=== PATIENT | male | born 1945 | race Caucasian/White ===

== ENCOUNTER 2017-07-03 07:23 | Outpatient (CLI) | payer MEDICARE ==
--- NOTE | 2017-07-03 09:36 | CT ---
CT THORAX WITHOUT IV CONTRAST: Date: 07/03/17 INDICATION: History of non-rheumatic aortic valvular stenosis with primary hypertension. COMPARISON: None. FINDINGS: There is an aortic valvular prosthesis in place. There is aneurysmal dilatation of the ascending aort a measuring up to 4.9 cm. There is aneurysmal dilatation of the aortic arch measuring 3.5 cm. The samantha cending thoracic aorta at the level of the right main pulmonary artery measured 2.8 cm. There are mod erate scattered vascular calcifications involving the thoracic aorta and coronary arteries. There are midline sternotomy changes. No suspicious pulmonary nodule or confluent air space opacity is evident. No pleural effusion is demo nstrated. No pathologically enlarged lymph nodes are noted. Visualized upper abdomen is unremarkable for acute abnormality. There is scattered degenerative and o steoarthritic change. IMPRESSION: 1. Aortic valvular prosthesis. 2. 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 If there is concern for ao rtic valvular prosthetic stenosis, further evaluation with an echocardiogram is recommended. 3. Coronary artery thoracic aortic calcifications. POS: [facility]
== END 2017-07-03 07:24 | disposition home or self-care (01) ==
LOC: CT 07:23
PROVIDERS: ATTEND Internal Medicine Cardiovascular Disease
DX: I35.0 Nonrheumatic aortic (valve) stenosis (principal); I70.0 Atherosclerosis of aorta; I71.2 Thoracic aortic aneurysm, without rupture; Z95.2 Presence of prosthetic heart valve
CPT/HCPCS: 71250

== ENCOUNTER 2017-07-16 14:00 | Outpatient (CLI) | payer MEDICARE ==
--- NOTE | 2017-07-16 15:52 | RAD ---
CERVICAL SPINE 5 VIEWS: INDICATION: Post concussion syndrome. Neck pain and headache. FINDINGS: Cervical vertebrae maintain normal height and alignment. There are mild to moderate degenerative pamela nges. There is mild loss of disk space at all levels and there are mild anterior osteophytes and mil d posterior spondylitic changes, most prominent at C4-5 and C5-6 levels. No fracture or compression deformity noted. Alignment is normally maintained with flexion and extension. IMPRESSION: There are mild to moderate degenerative changes as described. POS: [facility]
== END 2017-07-16 14:01 | disposition home or self-care (01) ==
LOC: RAD 14:00
PROVIDERS: ATTEND Nurse Practitioner Family
DX: F07.81 Postconcussional syndrome (principal); Z51.81 Encounter for therapeutic drug level monitoring; M47.892 Other spondylosis, cervical region; Z95.2 Presence of prosthetic heart valve; Z79.01 Long term (current) use of anticoagulants
CPT/HCPCS: 72050

== ENCOUNTER 2017-07-19 09:39 | Inpatient (IN) | payer MEDICARE ==
[2017-07-19 10:47] LABS: #Lymphocytes 0.7 thou/uL (1.20-3.40); #Monocytes 0.6 thou/uL (0.11-0.59); #Neutrophils 6.6 thou/uL (1.40-6.50); %Basophils 0.5 % (0.0-1.0); %Eosinophils 0.4 % (0.0-10.0); %Monocytes 6.9 % (0.0-10.0); %Neutrophils 83.2 % (42.0-75.0); Hemoglobin 14.1 g/dL (14.0-18.0); Mean Corpuscular HGB CONC 32.6 g/dL (32.0-36.0); Mean Corpuscular Hemoglobin 29.6 pg (27.0-31.0); Mean Corpuscular Volume 90.7 fl (80.0-94.0); Mean Platelet Volume 7.7 fL (7.4-10.4); Platelet Count 195 thou/uL (130-400); RBC Distribution Width 13.2 % (11.5-14.5); Red Blood Cell (RBC) Count 4.78 mill/uL (4.70-6.10)
[2017-07-19 11:00] LABS: INR-International Normal Ratio 1.7; PTT 29.4 SEC (22.9-36.1); Prothrombin Time 20.7 SEC (12.0-14.7)
[2017-07-19 11:12] LABS: ALT (SGPT) 9 U/L (8-55); AST (SGOT) 15 U/L (5-34); Albumin 3.8 g/dL (3.4-4.8); Alkaline Phosphatase 61 U/L (40-150); Anion Gap 11 mmol/L (10-20); BUN (Urea Nitrogen) 18 mg/dL (8.4-25.7); Bilirubin, Total 1.9 mg/dL (0.2-1.2); CK (CPK) 68 U/L (30-200); Calc. Creatinine Clearance 0 mL/min (70-130); Calcium 9.2 mg/dL (7.8-10.44); Carbon Dioxide 23 mmol/L (23-31); Chloride 108 mmol/L (98-107); Estimated GFR-MDRD 74; Globulin 2.7 g/dL (2.4-3.5); Glucose 122 mg/dL (80-115); Potassium 3.8 mmol/L (3.5-5.1); Protein, Total 6.5 g/dL (5.8-8.1); Sodium 138 mmol/L (136-145)
[2017-07-19 11:15] LABS: CKMB 1.2 ng/mL (0-6.6); Troponin I Less than 0.010 ng/mL (< 0.028)
--- NOTE | 2017-07-19 11:45 | RAD ---
SINGLE VIEW OF THE CHEST: COMPARISON: 08/06/16. HISTORY: Hit head 2 months ago with weakness and lethargy. FINDINGS: A single view of the chest shows an enlarged but stable cardiomediastinal silhouette. The patient is status post sternotomy. There is no evidence of consolidation, mass, or pleural effusion. IMPRESSION: Cardiomegaly. POS: [facility]
--- NOTE | 2017-07-19 12:09 | CT ---
CT OF THE BRAIN WITHOUT CONTRAST: HISTORY: Head injury 2 months ago. Mental status changes and weakness. Lightheadedness and headache. COMPARISON: MRI 08/07/16. TECHNIQUE: Multiple contiguous axial images were obtained in a CT of the brain without contrast. FINDINGS: There are bilateral acute on chronic subdural hematomas, left greater than right. These are along th e frontal and parietal convexities. The left subdural hematoma measures 1.5 cm in thickness. No int erventricular hemorrhage is seen. No significant midline shift or downward herniation is seen at thi s time. No parenchymal hemorrhage is seen. The calvarium and overlying soft tissues are unremarkable. The visualized paranasal sinuses and mast oid air cells are well aerated. IMPRESSION: Bilateral acute on chronic subdural hematomas. These are new compared to the prior CT and MRI. Dr. Ruiz notified of the findings at 10:53 p.m. on 07/19/17. CODE CR POS: [facility]
--- NOTE | 2017-07-19 12:11 | CT ---
CT OF THE CERVICAL SPINE WITHOUT CONTRAST: COMPARISON: None. HISTORY: Weakness and altered mental status. TECHNIQUE: Multiple contiguous axial images were obtained in a CT of the cervical spine without contrast. Sagit kwame and coronal reformats were performed. FINDINGS: The intervertebral disks are narrowed throughout the cervical spine secondary to degenerative changes . The vertebral bodies demonstrate height and alignment without acute fracture or subluxation. No p revertebral soft tissue swelling is seen. The posterior facets are well aligned. Normal alignment of the skull base with the cervical spine is seen. IMPRESSION: Degenerative changes of the cervical spine without acute osseous abnormality. POS: [facility]
[2017-07-19] MEDS ORDERED: Ondansetron HCl/PF 4 MG/2 ML Vial IVP PRN (12:35)
[2017-07-19] MEDS ORDERED: Acetaminophen 325 MG TAB PO PRN (12:35)
[2017-07-19] MEDS ORDERED: Bisacodyl 10 MG SUPP PR PRN (12:35)
[2017-07-19] MEDS ORDERED: Acetaminophen 650 MG Suppository PR PRN (12:35)
[2017-07-19] MEDS ORDERED: Ondansetron ODT 4 MG TAB PO PRN (12:35)
[2017-07-19] MEDS ORDERED: Bisacodyl 5 MG TAB PO PRN (12:35)
[2017-07-19] MEDS ORDERED: Phytonadione 10 MG/ML AMP SC SCH ×2 (12:45→18:30)
--- NOTE | 2017-07-19 15:20 | HP ---
REASON FOR ADMISSION: Subdural hematoma. HISTORY OF PRESENT ILLNESS: Sudheer Layne is a 72-year-old gentleman in our emergency department who , for the last 2 days, has had some deterioration in his mental status and ability to walk and care f or himself. Mr. Layne was about 2 months ago when he bumped his head. He is on aspirin and Co umadin and had some continued headaches that took him to his primary care physician this week. Narco tic analgesics and x-rays of the cervical spine were ordered and the analgesics resulted in duration of his ability to walk and care for himself. In the emergency department, he is arousable, awake and answers questions, but he drifts off to sleep rather quickly. He can move all four extremities. He follows commands. There is no lateralization of his weakness, but there is a generalized fatigabili ty. Alternating rapid motions are performed quite slowly, but there is smooth with no dysmetria. CT imaging of the brain revealed subdural hematoma. Neurosurgery was consulted. PAST MEDICAL HISTORY: Aortic valvular disease, hyperlipidemia, hypertension, cardiac arrhythmia, ost eoarthritis. PAST SURGICAL HISTORY: Aortic valve replacement, cardiac catheterization, left hip replacement. MEDICATIONS: Include Prevacid, valsartan/hydrochlorothiazide, aspirin, Coumadin, Crestor, diltiazem. SOCIAL HISTORY: Mr. Layne is retired. Does not smoke or use alcoholic beverages. He has no recreat ional drug use history. Lives with his . He has adult children in town. FAMILY HISTORY: Noncontributory. REVIEW OF SYSTEMS: Mr. Layne is denying everything but generalized fatigue and slowness and inabilit y to walk. PHYSICAL EXAMINATION: VITAL SIGNS: Blood pressures have been in the 150s, respiratory rate is 14. He is saturating in the high 90%, pulse is 80. GENERAL: Mr. Layne awakes when I walked into the room. He answers questions appropriately. His spe ech is fluent. His receptive language function is fine. If I engage his gaze and talk to him face t o face, he stays awake and participates sleep. With him awake, he can move all four extremitie s. He follows commands well, but very slowly. Alternating rapid motions are performed very slowly. There is mild bilateral pronator drift. ADMISSION FINDINGS AND TEST RESULTS: CT examination of the brain shows bilateral subdural fluid kori ections with subacute and chronic fluid therein. The total diameter on both sides as well over a centimeter and even over 15 mm. There is fluid level in the fluid collections. INR 1.7, platelet count of 195,000. 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 PLAN: I had a long discussion with Mr. Layen and his family. I have recommended bilateral naa hole evacuation of the subdural hematomas tomorrow. He will be n.p.o. after midnight, given vitamin K an d slowly transfuse 1 unit of FFP without fluid overloading him. IV fluid would only be administered after the FFP is in. Ask the medical team to make sure he is as safe as he can be for surgical intervention. After surgery, he will flat overnight with a CT scan on Sunday morning, we will leave drains in jose ce on both sides and the drains can be removed if there is good evacuation of the subdural fluid. INFORMED CONSENT: I discussed indications, risks, benefits, and alternatives to surgical interventio n for subdural hematomas. The risks I discussed included, but were not limited to bleeding, infectio n, CSF leak, brain damage, seizures, stroke, paralysis, dependence for care, cardiopulmonary complica tions of anesthesia rebleeding and . The patient's family expressed understanding of the risks and still wants to proceed.
[2017-07-19] MEDS: Docusate 100 MG CAP PO SCH (20:14)
[2017-07-19] MEDS: levETIRAcetam 500 mg/5 ml Oral Solution PO SCH (20:14)
[2017-07-19] MEDS: Metoprolol Tartrate 5 MG/5 ML VIAL IVP PRN (20:21)
[2017-07-20] MEDS: Metoprolol Tartrate 5 MG/5 ML VIAL IVP PRN (04:40)
[2017-07-20] MEDS: levETIRAcetam 500 mg/5 ml Oral Solution PO SCH ×2 (07:44→21:07)
[2017-07-20] MEDS: Docusate 100 MG CAP PO SCH ×2 (07:44→21:07)
[2017-07-20 08:34] LABS: INR-International Normal Ratio 1.5; PTT 27.7 SEC (22.9-36.1); Prothrombin Time 17.9 SEC (12.0-14.7)
--- NOTE | 2017-07-20 09:09 | PRG ---
DATE OF SERVICE: 07/20/2017 I saw Mr. Layne in his hospital room this morning. His nurse reports that the Hospitalist Service wa s called yesterday. I do not see any notes on the patient. Patient does not wake up enough to give any complaints or report on his condition overnight, but tells me he is aware of why he is in the [facility] and he wants to proceed with the surgery outlined yesterday. His vital signs overnight showed a high blood pressure in the 150s to 70s. Other vital signs that I see recorded are stable. OBJECTIVE: On examination, Mr. Layne is resting as I entered the room. He says a few words to jodee mari, opens his eyes barely, keep them open for a few seconds and closes them. He tries to follow com mands, but his protracted attention has a significant deficit and he stopped following commands quite quickly. Both hands squeeze my hand. He moves his legs only to stimulus. My plan today is Mr. Layne come to operating room later this morning. We will do naa hole evacuatio n of bilateral subdural hematomas, also placed drains on both sides and [facility] with the drains in place. If CT scans tomorrow look better, the drains can be removed and he can start his gradual mobilization after his operation.
[2017-07-20] MEDS ORDERED: Bacitracin Zinc Ointment 30 gm TUBE ONE (09:12)
[2017-07-20] MEDS ORDERED: Sodium Chloride 0.9% 30 ML ONE (09:12)
[2017-07-20] MEDS ORDERED: Lidocaine 0.5%/Epinephrine 1:200,000 50 ml Vial ONE (09:12)
[2017-07-20] MEDS ORDERED: Thrombin 5000 UNITS/5 ML VIAL ONE (09:12)
[2017-07-20] MEDS ORDERED: Ondansetron HCl/PF 4 MG/2 ML Vial ONE ×2 (09:56→15:06)
[2017-07-20] MEDS ORDERED: Fentanyl 100 MCG/2 ML VIAL ONE (09:56)
[2017-07-20] MEDS ORDERED: CEFAZOLIN/Water 2 GM/20 ML SYRINGE ONE (09:57)
[2017-07-20] MEDS ORDERED: Promethazine 25 MG TAB PO PRN (12:34)
[2017-07-20] MEDS ORDERED: Promethazine HCl 12.5 MG SUPP PR PRN (12:34)
[2017-07-20] MEDS ORDERED: Labetalol HCl 100 MG/20 ML VIAL SLOW IVP PRN (12:34)
[2017-07-20] MEDS ORDERED: Ondansetron HCl/PF 4 MG/2 ML Vial IVP PRN (12:34)
[2017-07-20] MEDS ORDERED: Acetaminophen 650 MG Suppository PR PRN (12:34)
[2017-07-20] MEDS ORDERED: Promethazine HCl 25 MG/ML VIAL IM PRN (12:34)
[2017-07-20] MEDS ORDERED: hydrALAZINE 20 MG/ML VIAL SLOW IVP PRN (12:34)
[2017-07-20] MEDS ORDERED: CEFAZOLIN/Water 2 GM/20 ML SYRINGE SLOW IVP SCH (12:45)
[2017-07-20] MEDS ORDERED: PHENYLEPHRINE-NS 100 MCG/ML 10 ML SYRINGE ONE (15:06)
[2017-07-20] MEDS ORDERED: PROPOFOL 200 MG/20 ML VIAL ONE (15:06)
[2017-07-20] MEDS ORDERED: ePHEDrine/0.9% NaCl/PF SYRINGE 50 mg/10 ml ONE (15:06)
[2017-07-20] MEDS ORDERED: Lidocaine 1% PF 5 ML VIAL ONE (15:06)
[2017-07-20 15:16] VITALS: BMI 23.6
--- NOTE | 2017-07-20 16:03 | OP ---
DATE OF PROCEDURE: 07/20/2017 SURGEON: Franca Machado M.D. VBA PROGRAMMER: CHARAN Allen. PREOPERATIVE INDICATION: Prevent neurological deterioration. PREOPERATIVE DIAGNOSES: Bilateral subdural hematomas, subacute to chronic. POSTOPERATIVE DIAGNOSIS: Bilateral subdural hematomas, subacute to chronic. OPERATIVE PROCEDURE: Bilateral placement of bur holes, evacuation of subdural hematoma and placement of subdural drain. PREOPERATIVE MEDICATION: Ancef 2 grams IV. DRAIN NUMBER: 2. DRAIN TYPE: Red rubber catheter in the subdural space. OPERATIVE DICTATION: The patient was brought to the operating room. General LMA anesthesia was leanna brendan. Hair was removed from the scalp with electric clippers. We planned incisions to place bur hole s in the frontal and parietal bones on both sides and under the planned incisions, we infused local a nesthetic. The scalp was sterilely prepped and draped. We started by turning the head to the left a nd prepping and draping the right side. We opened the right-sided planned incisions with a 10 blade knife and controlled bleeding with bipolar and monopolar cautery. We placed self-retaining retractor s and exposed the cranium beneath them. Bur holes were placed in the frontal and parietal bones and we waxed the bone edges. We coagulated the dura with bipolar cautery and opened in cruciate fashion. We opened the posterior bur hole first and then the anterior bur hole and old blood products emanat ed under some pressure. We washed the subdural space with irrigation and placed a red rubber cathete r into the subdural space. We cut extra side holes in the catheter before placing it. We tunneled t he drain posteriorly through a separate stab incision and connected it to a lumbar drain bag. We con tinued to irrigate the subdural space and the irrigant came into the collecting bag. We then placed Gelfoam in the bur holes. We placed a bur hole cover on the frontal bone bur hole and we closed the wound in anatomic layers. We applied a sterile dressing. We then turned the head to the right and p repped and draped the left side of the scalp. In a similar fashion, we opened our planned incision w ith a 10 blade knife, placed self-retaining retractors, placed our bur holes, waxed the edges and the n opened the dura. Blood products emanated under some pressure. We washed the subdural space with c opious amounts of bacitracin irrigation. We placed a red rubber catheter with extra side holes in it into the subdural space and tunneled posteriorly through a separate stab incision and connected it t o a lumbar drain bag. We irrigated and found the subdural space connected with the collection bag. We placed Gelfoam in the bur holes and a bur hole cover on the frontal bur hole. We closed the incis ions in anatomic layers. We applied a sterile dressing here as well. This was a clean case and no c ontamination.
--- NOTE | 2017-07-20 16:57 | CON ---
DATE OF CONSULTATION: 07/20/2017 REASON FOR CONSULTATION: Medical management. REFERRING PHYSICIAN: Dr. Machado. HISTORY OF PRESENT ILLNESS: The patient is a 72-year-old gentleman known to us at this practice with a history of multiple medical problems to include hyperlipidemia, hypertension, and aortic valve rep lacement in the past. He does have a history of subdural fluid collection with subacute and chronic fluid by CT and for thi s reason he is being admitted for surgical intervention. The patient is confused. He is weak. All the information was obtained from his . His stat es he has been getting progressively worse over the last several weeks. He has been confused. She w as told to bring him to Dr. Reddy' office; however, she could not get him there secondary to his cond itions, so she did bring him in to the hospital. There, he was found to have the condition as enumer ated above. Patient currently is hemodynamically stable and appeared to be in no acute distress. PAST MEDICAL HISTORY: 1. Hyperlipidemia. 2. Hypertension. 3. Osteoarthritis. 4. Cardiac arrhythmia. 5. Hyperlipidemia. 6. GERD. PAST SURGICAL HISTORY: 1. History of left hip replacement. 2. History of aortic valve replacement. ALLERGIES: None. MEDICATIONS: 1. Crestor 20 mg. 2. Lansoprazole 30 mg. 3. Coumadin 5 mg one and half alternating doses. 4. Aspirin 325 mg a day. 5. Tylenol No. 3 p.r.n. for 4-6 hours. 6. 75 mg 4 times a day SOCIAL HISTORY: He quit chewing tobacco over 15 years ago. He does not drink. FAMILY HISTORY: Noncontributory, history could not be obtained due to patient's mental status. PHYSICAL EXAMINATION: GENERAL: Upon, he is awake. He is confused. He is weak in his voice. VITAL SIGNS: Blood pressure 165/80, pulse 65, respiratory rate 18, afebrile. NECK: Supple with no increased JVP or carotid bruit. Carotid upstroke without thyromegaly. COR: Regular rate and rhythm. CHEST: Symmetrical. Clear to auscultation and percussion. ABDOMEN: Soft and nontender with normoactive bowel sounds. There is no bruit or organomegaly. EXTREMITIES: No edema or cyanosis. He had palpable pedal pulses. SKIN: There is no evidence of ulceration, lesion, or rash. NEUROLOGIC: He is awake, but he is confused. LABORATORY DATA AND IMAGING DATA: His INR is 1.7. His CBC is normal. His glucose is 122. His BUN and creatinine are normal. EKG showed sinus rhythm. ASSESSMENT: 1. Bilateral subdural hematomas. 2. Confusion, secondary to above. 3. Hypertension. 4. Hyperlipidemia. 5. History of aortic valve replacement, on Coumadin. RECOMMENDATIONS: Agree with your fine care. We will resume home medications once able. I have alre wilmar ordered Lopressor IV q.3 hours for systolic blood pressure greater than 170 and will be happy to follow the patient post-surgery. It may be a good idea to involve Cardiology with his history and hi m being on Coumadin.
[2017-07-20] MEDS: Acetaminophen 325 MG TAB PO PRN ×2 (17:05→22:13)
[2017-07-20] MEDS: CEFAZOLIN/Water 2 GM/20 ML SYRINGE SLOW IVP SCH (18:05)
[2017-07-20] MEDS: Sodium Chloride 0.9% 1,000 ML IV SCH (18:56)
[2017-07-21] MEDS: Sodium Chloride 0.9% 1,000 ML IV SCH ×2 (02:30→16:09)
[2017-07-21] MEDS: CEFAZOLIN/Water 2 GM/20 ML SYRINGE SLOW IVP SCH ×3 (02:32→23:22)
[2017-07-21] MEDS: Acetaminophen 325 MG TAB PO PRN (03:51)
[2017-07-21 07:22] LABS: #Eosinphils 0.1 thou/uL (0.0-0.7); #Lymphocytes 0.8 thou/uL (1.20-3.40); #Monocytes 0.8 thou/uL (0.11-0.59); #Neutrophils 5.9 thou/uL (1.40-6.50); %Basophils 0.4 % (0.0-1.0); %Eosinophils 1.6 % (0.0-10.0); %Lymphocytes 9.9 % (21.0-51.0); %Monocytes 10.7 % (0.0-10.0); %Neutrophils 77.5 % (42.0-75.0); Hemoglobin 14.2 g/dL (14.0-18.0); Mean Corpuscular HGB CONC 33.6 g/dL (32.0-36.0); Mean Corpuscular Hemoglobin 30.3 pg (27.0-31.0); Mean Corpuscular Volume 90.3 fl (80.0-94.0); Mean Platelet Volume 7.2 fL (7.4-10.4); Platelet Count 174 thou/uL (130-400); RBC Distribution Width 13.4 % (11.5-14.5); Red Blood Cell (RBC) Count 4.67 mill/uL (4.70-6.10); White Blood Cell (WBC) Count 7.7 thou/uL (4.8-10.8)
[2017-07-21] MEDS ORDERED: Acetaminophen/Codeine 30-300mg Tablet PO PRN ×2 (07:26)
[2017-07-21] MEDS ORDERED: AMOXICILLIN PO PRN (07:28)
[2017-07-21 07:51] LABS: Anion Gap 9 mmol/L (10-20); BUN (Urea Nitrogen) 19 mg/dL (8.4-25.7); Calc. Creatinine Clearance 85 mL/min (70-130); Calcium 8.6 mg/dL (7.8-10.44); Carbon Dioxide 24 mmol/L (23-31); Chloride 107 mmol/L (98-107); Estimated GFR-MDRD 73; Glucose 106 mg/dL (80-115); Potassium 4.2 mmol/L (3.5-5.1); Sodium 136 mmol/L (136-145)
--- NOTE | 2017-07-21 09:31 | PRG ---
DATE OF SERVICE: 07/21/2017 Mr. Layne is a 72-year-old man, who is on his first postoperative day following bilateral chronic sub dural evacuation by Dr. Machado. He has 2 drains in. Over the first 12 hours that they are in the y put out 80 mL and 50 mL respectively, and then over the last 12 hours, since yesterday evening arou nd 8:00 until this morning, they put about 10 mL and 8 mL respectively. So, we will remove those thi s morning. He has a repeat CT scan that shows significant resolution of hemorrhage, almost completel y on the right and a near total on the left with significant reduction in mass effect in the bilatera l hemispheres. The bags at bedside have no longer drained. He is uncomfortable because of lying fla t, but after we removed drains, he is free to sit up in bed, so that the beside and the chair will st ill be a fall risk and will need assistance out of bed. We will start home meds other than warfarin, aspirin, and I will reconcile his medications in the system at this time. We will plan to follow up . We expect physical therapy and occupational therapy to continue to work with him and anticipate juan carlos murdock as early as tomorrow pending his progression.
[2017-07-21] MEDS: levETIRAcetam 500 mg/5 ml Oral Solution PO SCH ×2 (10:25→23:21)
[2017-07-21] MEDS: Rosuvastatin 20 MG TAB PO SCH (10:26)
[2017-07-21] MEDS: Docusate 100 MG CAP PO SCH ×2 (10:34→23:21)
--- NOTE | 2017-07-21 10:39 | PRG ---
DATE OF SERVICE: 07/21/2017 SUBJECTIVE: The patient had a good night. He is awake. He is alert and oriented. He is visiting [facility] the staff. He complains of back pain and said that the Tylenol is not helping many. PHYSICAL EXAMINATION: VITAL SIGNS: His blood pressure is 130/60, pulse 80, respiration rate 18, he is afebrile. NECK: Supple with no increased JVP or carotid bruit. Carotid had good upstroke with no thyromegaly. COR: Regular rate and rhythm with normal bowel sounds. CHEST: Symmetrical. Clear to auscultation and percussion. ABDOMEN: Soft, nontender, normoactive bowel sounds. There is bruit or organomegaly. EXTREMITIES: No edema or cyanosis. Palpable pedal pulses. SKIN: There is no evidence of ulceration, lesion, or rash. NEUROLOGIC: He is awake, alert and oriented to person, place, and time. HEAD: He has got denisse on his head. They are clean, dry, and intact without redness or swelling. LABORATORY DATA: His CBC this morning is normal. There is no INR done today. His CMP is normal. ASSESSMENT: 1. Subdural hematoma, status post naa hole procedure. 2. Hypertension. 3. Hyperlipidemia. 4. History of aortic valve replacement on Coumadin. 5. Back pain. PLAN: We will go ahead and start Tramadol 50 mg t.i.d. as needed for pain. We will also follow up w [facility] CBC, CMP and PT/INR in the morning. The patient verbalized understanding. All questions answere d to satisfaction. This is CHRISTIAN Johnson dictating for Dr. Jori Reddy.
--- NOTE | 2017-07-21 12:09 | CT ---
PRELIMINARY REPORT/[facility]/EMERGENTY AFTER-HOURS PROCEDURE Addendum created by Giovanni Harrison MD on 07/21/2017 5:41 AM Central Time ([place] & [place]) THIS REPORT C ONTAINS FINDINGS THAT MAY BE CRITICAL TO PATIENT CARE. The findings were verbally communicated via andie messina conference with HAILE Palacio at 5:41 AM CDT on 07/21/2017. The findings were acknowledged and understood. Initial Report created on 07/21/2017 5:34 AM Central Time ([place] & [place]) CT Head Without Intravenous Contrast CLINICAL HISTORY: 72 years old, male; Device placement; Cerebral fluid drainiage device or shunt; Prior surgery; Surger y date: Post-operative (0-2 days); Patient HX: S/P craniotomy TECHNIQUE: Axial computed tomography images of the head/brain without intravenous contrast. COMPARISON: CT Brain WO Con 2017-07-19 10:48 FINDINGS: Postoperative changes from recent bilateral frontal naa hole placement with drainage catheter tips l ocated in the frontal extra-axial spaces bilaterally. Interval decrease in size of the previously samantha cribed bilateral mixed density subdural hematomas with decreased mass effect of the bilateral cerebra l hemispheres. Residual acute and chronic left cerebral hemisphere subdural hemorrhage measuring approximately 7 mm in greatest thickness. Near-complete resolution of the right-sided acute on chronic subdural hemorrhage. Right frontal lenticular epidural hemorrhage measuring 4 mm in greatest thickness probably redistribu tion compared to prior examination. Bilateral postoperative pneumocephalus are present. Unchanged small layering subdural hemorrhage in the tentorium on the left. No midline shift and gallego-white matter differentiation are preserved. Ventricular size remains the same. Basal cisterns are patent. Unchanged right greater than left small hyperdensities in the bilateral globes inferiorly. Paranasal sinuses are clear. Mastoid air cells are clear. IMPRESSION: 1. Postoperative changes from recent bilateral naa hole and intracranial drain placement as describe d above. 2. Residual acute and chronic subdural hemorrhage on the left as described and near complete resoluti on of the acute on chronic subdural hemorrhage of the right. 3. Right frontal lenticular epidural hemorrhage measuring 4 mm in greatest thickness probably redistr ibution from prior examination. 4. Unchanged small layering subdural hemorrhage in the tentorium on the left. 5. Bilateral postoperative pneumocephalus. Thank you for allowing us to participate in the care of your patient. Dictated and Authenticated by: Giovanni Harrison MD 07/21/2017 5:34 AM Central Time ([place] & [place]) FINAL REPORT EMERGENCY AFTER HOURS CT BRAIN PERFORMED WITHOUT CONTRAST ENHANCEMENT: Date: 07/21/17 HISTORY: Postop craniotomy. COMPARISON: 07/19/17 study. FINDINGS: Postoperative changes are now seen with bilateral bur hole placement and subdural drains in place. Th ere has been a significant reduction in the subdural hematomas. There is still minimal residual blood on the right side, slightly greater amount of blood over the left convexity. There is some associate d pneumocephalus. There is no shift of midline structures. Mastoid air cells and visualized sinuses are clear. IMPRESSION: Postoperative changes with bilateral bur holes and subdural drains in place with significant reductio n in the size of the subdural collections. This report is in agreement with the preliminary report issued by [facility]. POS: [facility]
[2017-07-21] MEDS ORDERED: traMADol HCl 50 MG TAB PO PRN (23:40)
[2017-07-22] MEDS: Docusate 100 MG CAP PO SCH ×2 (08:19→21:37)
[2017-07-22] MEDS: Rosuvastatin 20 MG TAB PO SCH (08:19)
[2017-07-22] MEDS: levETIRAcetam 500 mg/5 ml Oral Solution PO SCH ×2 (08:20→21:37)
--- NOTE | 2017-07-22 14:04 | PRG ---
DATE OF SERVICE: 07/22/2017 CHRISTIAN Johnson dictating for Jori Reddy M.D. The patient is resting comfortably. I did not wake him. His is at bedside. I had a long conve rsation with his . The patient did have Physical Therapy come by this morning. He did very well . The patient can get up by himself and walk to the bathroom. He still complains of weakness. Upon evaluation, he had no lab in the chart. PHYSICAL EXAMINATION: VITAL SIGNS: His blood pressure is 150/80, pulse 90, respiratory rate 20, he is afebrile. NECK: [place] pple with no increased JVP or carotid bruit. Carotid had good upstroke. No thyromegaly. COR: Regular rhythm. CHEST: Symmetrically clear to auscultation and percussion. ABDOMEN: Soft, nontender, normoactive bowel sounds. No bruit or organomegaly. EXTREMITIES: No edema or cyanosis. He had palpable pedal pulses. SKIN: There is no evidence of ulcer, lesion, or rash. NEUROLOGIC: He has been doing fine according to his ; right now, he is resting comfortably. ASSESSMENT: 1. Subdural hematoma, status post surgical intervention. 2. History of aortic valve replacement, on Coumadin. PLAN AND RECOMMENDATIONS: Agree with your fine care. The patient probably could go home today how good he is doing and moving around and getting out of bed by itself; however, we will leave that to their surgeon, as we are the consultants. If he does go home today, he needs to follow up with Todd Rdedy in 1 week or prior to that if he has any complications.
--- NOTE | 2017-07-22 19:28 | PRG ---
DATE OF SERVICE: 07/22/2017 HISTORY: Mr. Layne has been transferred to the surgical floor this morning and is resting well in th e bed. He arouses easily and is neurologically stable and intact. Plan for today will be to ambulat e frequently, have physical therapy work with him and evaluate and see if we may be able to discharge him home. He is stable. I will check back in by phone later this afternoon.
--- NOTE | 2017-07-22 21:32 | PRG ---
DATE OF SERVICE: 07/22/2017 Mr. Layne is now 2 day status post naa hole drainage of acute on chronic subdural hematomas. He tra nsitioned yesterday from the ICU to the floor. He has been mobilizing but has been unsteady on his f eet. We will continue to have him work with physical therapy and then plan appropriate disposition elodia freire, hopefully to home as soon as tomorrow.
--- NOTE | 2017-07-23 06:52 | PRG ---
DATE OF SERVICE: 07/23/2017 Mr. Layne is 3 days out from naa hole evacuation of bilateral subdural hematomas. When I am seeing him this morning he is much more alert than he was before surgery. He is starting conversation, he i s speaking in complete sentences. He looks forward to getting home. He asked to walk around more th an he did yesterday and he would like to leave today if he is safe for his activities of daily living . I agree with him. His vitals look stable. His neurological examination is quite reassuring. The re is no pronator drift and the CT scan from Sunday looks much better than before surgery. We will make plans for him to leave today.
[2017-07-23] MEDS: Docusate 100 MG CAP PO SCH (08:19)
[2017-07-23] MEDS: Rosuvastatin 20 MG TAB PO SCH (08:20)
[2017-07-23] MEDS: levETIRAcetam 500 mg/5 ml Oral Solution PO SCH (08:20)
[2017-07-23 15:38] VITALS: BP 99/60; TEMP 99.7
--- NOTE | 2017-07-24 06:53 | DIS ---
DATE OF ADMISSION: 07/19/2017 DATE OF DISCHARGE: 07/23/2017 REASON FOR ADMISSION: Subdural hematomas. ADMISSION HISTORY: Mr. Layne was admitted to the hospital after some subacute decline in his neurolo gical function with some acute worsening 2 days prior to admission. Although he remained responsive and arousable he was quite sleepy and unable to walk safely on his own. For this reason, his family brought him to the emergency department and CT examination of the brain showed bilateral subdural hem atomas. The family thinks it is from when he struck his head about 2 months ago and he was on Coumad in and aspirin prior to his admission. HOSPITAL COURSE: The patient was given fresh frozen plasma, he was watched overnight and taken to [facility] operating room on the morning after his admission. When we placed bur holes to evacuate subdural h ematomas bilaterally and left drains in place. These drains were removed the following day. Follow up CT scans looked good and he began mobilization over the weekend following his admission. Sunday he was safe for his activities of daily living and was discharged home. CONDITION ON DISCHARGE: The patient had no emergency condition and was ready for discharge. FOLLOWUP ARRANGEMENTS: The patient will be called by our office to schedule his follow up CT scan an d followup appointments. INSTRUCTIONS: Postoperative wound care and activity restrictions were outlined. The patient will re main off of Coumadin and aspirin until his followup appointment.
== END 2017-07-23 18:33 | disposition home or self-care (01) | DRG 27 ==
LOC: ERS 09:39 → 2SE 13:21 → CCU 07-20 13:09 → SURG A 07-21 18:12
PROVIDERS: ADMIT Neurological Surgery; ATTEND Neurological Surgery
PROC: 009430Z Drainage of Intracranial Subdural Space with Drainage Device, Percutaneous Approach (ICD-10-PCS; principal; 2017-07-20)
DX: I62.01 Nontraumatic acute subdural hemorrhage (principal); Z79.01 Long term (current) use of anticoagulants; I62.03 Nontraumatic chronic subdural hemorrhage; Z95.2 Presence of prosthetic heart valve; I10 Essential (primary) hypertension; E78.5 Hyperlipidemia, unspecified; M54.9 Dorsalgia, unspecified; M19.90 Unspecified osteoarthritis, unspecified site; K21.9 Gastro-esophageal reflux disease without esophagitis; I49.9 Cardiac arrhythmia, unspecified; Z87.891 Personal history of nicotine dependence; Z79.82 Long term (current) use of aspirin; S00.93XA Contusion of unspecified part of head, initial encounter
CPT/HCPCS: 36415; 36430; 70450; 71045; 72050; 72125; 80048; 80053; 82550; 82553; 84484; 85025; 85610; 85730; 86850; 86900; 86901; 93005; A4216; C1713; G8978-GP-CK; G8979-GP-CI; G8987-GO-CJ; G8988-GO-CI; J2001; J2405; J2704; J3010; J3430; J3490; P9059

== ENCOUNTER 2017-08-07 12:56 | Outpatient (CLI) | payer MEDICARE ==
--- NOTE | 2017-08-07 14:42 | CT ---
HEAD CT WITHOUT CONTRAST: DATE: 08/07/17. COMPARISON: 07/21/17. HISTORY: Reevaluate subdural hematoma. TECHNIQUE: Serial axial CT imaging obtained at 4.5 mm intervals from vertex through skull base without contrast. FINDINGS: The paranasal sinuses/mastoid air cells are well aerated. There is no displaced calvarial fracture. Bilateral frontal and parietal naa holes are present. Small volume hypodense subdural fluid collections are noted bilaterally, evidence of bilateral chroni c subdural hematomas, right large than left. When compared to the most recent examination, subdural drainage catheters have been removed. The chronic residual subdural hematoma on the left is seen fro m the axial level of the septum pellucidum through the axial level of the vertex and measures approxi mately 1 cm in greatest transverse dimension. The chronic subdural hematoma on the right is best see n from the axial level of the centrum semiovale through the vertex, measuring up to 8 mm in transvers e dimension in the right frontal region. No new hemorrhage is seen. IMPRESSION: Findings suggesting small bilateral chronic subdural hematomas, left greater than right. No acute he morrhage, significant midline shift, or mass effect seen. POS: [facility]
== END 2017-08-07 12:57 | disposition home or self-care (01) ==
LOC: TBSIIMAG 12:56
PROVIDERS: ATTEND Neurological Surgery
DX: I62.02 Nontraumatic subacute subdural hemorrhage (principal); I62.03 Nontraumatic chronic subdural hemorrhage
CPT/HCPCS: 70450

== ENCOUNTER 2017-09-03 10:04 | Outpatient (CLI) | payer MEDICARE ==
--- NOTE | 2017-09-03 12:00 | CT ---
HEAD CT WITHOUT CONTRAST: COMPARISON: 08/07/17. HISTORY: Nontraumatic subacute subdural hematoma. TECHNIQUE: Noncontrast head CT is performed from the skull base to the skull vertex. FINDINGS: Interval decrease in size of a left-sided subdural hematoma. Minimal residual extraaxial blood is pr esent. There is redemonstration of subdural blood along the right frontal convexity. Currently, the subdural blood had a slightly hyperdense appearance which may represent retraction of blood products . A superimposed acute hemorrhage cannot be completely excluded. The maximum diameter of the subdur al hematoma along the right frontal and temporal convexity is 4 mm. There is no significant mass eff ect or sulcal effacement. No midline shift. Basilar cisterns are patent. Brain volume is age appro priate. Cortical gallego-white matter differentiation is preserved. Ventricles and sulci are patent and symmetric. Calvarium is intact. [place] hole defects are noted. A dequate aeration of the sinuses and mastoid air cells. IMPRESSION: 1. Interval decrease in size of a left-sided extraaxial hematoma. 2. Redemonstration of a subdural hematoma along the right frontotemporal convexity. There is subtle hyperdensity noted which may represent retraction of blood products. A small acute hemorrhage canno t be completely excluded. No significant mass effect or midline shift. CODE T POS: [facility]
== END 2017-09-03 10:05 | disposition home or self-care (01) ==
LOC: TBSIIMAG 10:04
PROVIDERS: ATTEND Neurological Surgery
DX: I62.02 Nontraumatic subacute subdural hemorrhage (principal); I62.03 Nontraumatic chronic subdural hemorrhage
CPT/HCPCS: 70450

== ENCOUNTER 2017-09-19 09:33 | Outpatient (CLI) | payer MEDICARE ==
--- NOTE | 2017-09-19 10:50 | CT ---
CT HEAD NONCONTRAST: INDICATIONS: Subdural hematoma. Followup. COMPARISON: Reference made to a 09/03/2017 examination. FINDINGS: The previously demonstrated right subdural hematoma has decreased in density, compatible with interva l evolution of blood products. The overall volume is grossly stable, with an approximate 4 mm thickn ess. No significant shift of midline or ventricular effacement. The exam is otherwise grossly stabl e. IMPRESSION: Interval expected temporal evolution of blood products within a right-sided subdural hematoma. The s ubacute to chronic right subdural hematoma is grossly stable in volume to prior exam from 09/03/2017. There is no significant residual left-sided extraaxial hematoma. POS: [facility]
== END 2017-09-19 09:34 | disposition home or self-care (01) ==
LOC: TBSIIMAG 09:33
PROVIDERS: ATTEND Neurological Surgery
DX: I62.03 Nontraumatic chronic subdural hemorrhage (principal); I62.02 Nontraumatic subacute subdural hemorrhage
CPT/HCPCS: 70450

== ENCOUNTER 2020-06-05 15:45 | Emergency (ER) | payer MEDICARE | END 2020-06-05 17:50 | disposition home or self-care (01) | LOC: ERS 15:45 | DX: S09.90XA Unspecified injury of head, initial encounter (principal); E78.5 Hyperlipidemia, unspecified; I10 Essential (primary) hypertension; Z87.891 Personal history of nicotine dependence; Z79.899 Other long term (current) drug therapy; Z79.01 Long term (current) use of anticoagulants; W22.8XXA Striking against or struck by other objects, initial encounter | CPT/HCPCS: 70450 ==

== ENCOUNTER 2020-10-15 07:46 | Outpatient (CLI) | payer OTHER ==
[2020-10-15] MEDS ORDERED: Iopamidol 370 76% 100 ML VIAL ONE (10:32)
== END 2020-10-15 07:47 | disposition home or self-care (01) ==
LOC: CT 07:46
PROVIDERS: ATTEND Urology
DX: I71.2 Thoracic aortic aneurysm, without rupture (principal); N28.1 Cyst of kidney, acquired; R93.2 Abnormal findings on diagnostic imaging of liver and biliary tract
CPT/HCPCS: 71275; 74170; 82565; Q9967

== ENCOUNTER 2021-02-25 17:35 | Emergency (ER) | payer MEDICARE ==
[2021-02-25 20:00] LABS: INR-International Normal Ratio 3.1; PTT 41.2 sec (22.9-36.1); Prothrombin Time 32.8 sec (12.0-14.7)
== END 2021-02-25 20:22 | disposition home or self-care (01) ==
LOC: ERS 17:35
DX: S60.222A Contusion of left hand, initial encounter (principal); S60.212A Contusion of left wrist, initial encounter; X50.9XXA Other and unspecified overexertion or strenuous movements or postures, initial encounter; I10 Essential (primary) hypertension; E78.5 Hyperlipidemia, unspecified; Z87.891 Personal history of nicotine dependence; Z79.899 Other long term (current) drug therapy
CPT/HCPCS: 29125; 36415; 85610; 85730

== ENCOUNTER 2021-03-15 07:59 | Outpatient (CLI) | payer OTHER | END 2021-03-15 08:00 | disposition home or self-care (01) | LOC: BICCT 07:59 | DX: I71.2 Thoracic aortic aneurysm, without rupture (principal) | CPT/HCPCS: 71275; 82565 ==

== ENCOUNTER 2021-10-19 07:42 | Outpatient (CLI) | payer OTHER ==
[2021-10-19] MEDS ORDERED: Iopamidol-370 76% 500 ML 1 ML ONE (09:51)
== END 2021-10-19 07:43 | disposition home or self-care (01) ==
LOC: BICCT 07:42
DX: I71.2 Thoracic aortic aneurysm, without rupture (principal)
CPT/HCPCS: 71275; 82565; Q9967

== ENCOUNTER 2021-11-11 09:14 | Outpatient (CLI) | payer OTHER | END 2021-11-11 09:15 | disposition home or self-care (01) | LOC: BICULT 09:14 | PROVIDERS: ATTEND Urology | DX: N28.1 Cyst of kidney, acquired (principal) | CPT/HCPCS: 76770 ==

== ENCOUNTER 2022-04-13 15:07 | Emergency (ER) | payer OTHER ==
[2022-04-13 16:38] LABS: #Lymphocytes 0.8 thou/uL (1.20-3.40); #Monocytes 0.5 thou/uL (0.11-0.59); #Neutrophils 5.1 thou/uL (1.40-6.50); %Basophils 0.4 % (0.0-1.0); %Eosinophils 0.6 % (0.0-10.0); %Lymphocytes 11.8 % (21.0-51.0); %Monocytes 7.6 % (0.0-10.0); %Neutrophils 79.5 % (42.0-75.0); Hemoglobin 13.9 g/dL (14.0-18.0); Mean Corpuscular HGB CONC 33.3 g/dL (32.0-36.0); Mean Corpuscular Hemoglobin 31.1 pg (27.0-31.0); Mean Corpuscular Volume 93.4 fl (78.0-98.0); Mean Platelet Volume 9.1 fL (7.4-10.4); Platelet Count 152 10x3/uL (130-400); RBC Distribution Width 12.8 % (11.5-14.5); Red Blood Cell (RBC) Count 4.46 mill/uL (4.70-6.10); White Blood Cell (WBC) Count 6.4 10x3/uL (4.8-10.8)
[2022-04-13 17:00] LABS: INR-International Normal Ratio 2.3
== END 2022-04-13 18:04 | disposition home or self-care (01) ==
LOC: ERS 15:07
DX: S00.01XA Abrasion of scalp, initial encounter (principal); I48.91 Unspecified atrial fibrillation; I10 Essential (primary) hypertension; Z79.01 Long term (current) use of anticoagulants; Z79.899 Other long term (current) drug therapy; W22.09XA Striking against other stationary object, initial encounter
CPT/HCPCS: 36415; 70450; 85025; 85610; 85730; 93005

== ENCOUNTER 2024-12-17 09:30 | Outpatient (CLI) | payer OTHER ==
[2024-12-17 10:05] LABS: Estimated GFR - POC 48.0
[2024-12-17] MEDS ORDERED: Iopamidol 370 76% 100 ML VIAL ONE (10:15)
== END 2024-12-17 09:31 | disposition home or self-care (01) ==
LOC: CT 09:30
PROVIDERS: ATTEND Internal Medicine
DX: I77.89 Other specified disorders of arteries and arterioles (principal); I71.21 Aneurysm of the ascending aorta, without rupture
CPT/HCPCS: 36415; 71275; 82565; Q9967